=== PATIENT | female | born 1980 | race Caucasian/White ===

== ENCOUNTER 2024-02-10 16:09 | Emergency (ER) | payer BC, SELFPAY ==
--- NOTE | ~2024-02-10 | CT_ITS ---
EXAMINATION: CT HEAD WITHOUT CONTRAST CLINICAL INFORMATION: Unsteady. COMPARISON: None available. TECHNIQUE: Contiguous axial imaging was performed from the skull base to vertex without intravenous administration of contrast. This CT examination was performed using dose optimization techniques as appropriate, variously including the following: *Automated exposure control *Adjustment of mA and/or kV according to patient size (this includes techniques or standardized protocols for targeted exams where dose is matched to indication/reason for exam; i.e. extremities or head) *Use of iterative reconstruction technique DLP: 613 mGy-cm FINDINGS: No acute intracranial hemorrhage. No mass effect or midline shift. No parenchymal lesion. The montanez-white differentiation is maintained. No extra-axial fluid collection. The ventricles and sulci are unremarkable. The basal cisterns are patent. The calvarium is intact. The visualized paranasal sinuses and mastoid air cells are clear. CT/CT head/brain wo IV con IMPRESSION: No acute intracranial hemorrhage or mass effect.
[2024-02-10 16:15] VITALS: BP 140/84; PULSE 94; RESP 16; TEMP 36.5; O2SAT 98; BMI 20.7
--- NOTE | 2024-02-10 16:15 | ED_ITS ---
HPI - General Adult General Chief complaint: Dizziness Stated complaint: dizzy,shaky,fatigue,nausea Time Seen by Provider: 02/10/24 20:31 Source: patient Mode of arrival: ambulatory Limitations: no limitations History of Present Illness ED Provider: EDMUNDO VILLA PA-C HPI narrative: 43-year-old female with pmhx significant for migraines (takes topamax) presents to the ED today for evaluation of dizziness, ear fullness and congestion since this morning. Dizziness is worse with head movements. Denies syncope. Denies known sick contacts however admits to returning from [place] a few days ago via airplane. Denies drainage from the ear, hearing changes, headache, vision changes. Denies recent swimming. Related Data Previous Rx's ?Medication ?Instructions ?Recorded amoxicillin 875 mg-potassium 1 tab PO BID 5 days #10 tabs 02/11/24 clavulanate 125 mg tablet meclizine 25 mg tablet 25 mg PO BID PRN dizziness #14 tabs 02/11/24 Allergies Allergy/AdvReac Type Severity Reaction Status Date / Time No Known Allergies Allergy Verified 02/10/24 16:16 Review of Systems 2 Review of Systems: Constitutional: No fever, chills, fatigue, night sweats, weight changes ENT/Mouth: No ear pain, hearing loss, nasal congestion, sinus pain, rhinorrhea, sore throat, + no congestion Eyes: No eye pain, swelling, redness, vision changes, discharge, + ear fullness Cardio: No chest pain, palpitations, BOLIVAR, orthopnea, peripheral edema Pulm: No SOB, cough, sputum, wheezing, dyspnea, hemoptysis GI: No nausea, vomiting, hematemesis, abdominal pain, diarrhea, constipation, hematochezia, melena : No irregular bleeding, dysuria, frequency, urgency, hesitancy, hematuria, flank pain, urinary flow changes, urinary incontinence or retention MSK: No back pain, neck pain, joint pain, myalgias Skin: No lesions, rashes Neuro: No weakness, numbness, paresthesias, LOC, dizziness, headache Psych: No anxiety/panic, depression, SI/HI, AH/VH All other systems reviewed and are negative PMFSH Past Medical History Attestation statement: The following information was validated with the patient. Source: old records reviewed and nursing notes reviewed Social History Social History Smoked in Last 30 Days: No Advance Directives: No Advance Directives Information Provided: No Physical Exam ED Vital Signs: Vital Signs - 24 hr 02/10/24 16:15 02/10/24 22:00 02/11/24 00:00 Temperature 97.7 F 98.1 F 97.9 F Pulse Rate 94 88 84 Respiratory Rate 16 16 16 Blood Pressure 140/84 H 127/79 132/81 Pulse Oximetry 98 97 98 Oxygen Delivery Method Room Air Room Air Room Air 02/11/24 00:56 Temperature 97.9 F Pulse Rate 84 Respiratory Rate 16 Blood Pressure 132/81 Pulse Oximetry 98 Oxygen Delivery Method Room Air BMI result Body Mass Index 20.7 Patient is slightly hypertensive, vitals otherwise WNL Const General: cooperative, healthy appearing, comfortable and no acute distress Orientation/consciousness: patient oriented x3 Limitations: no limitations HENMT Other: + No pain on manipulation of left pinna or tragus. No mastoid tenderness or protrusion of the auricle. Left EAC without erythema, edema or discharge. Left TM intact, erythematous and bulging. No effusion. + No pain on manipulation of right pinna or tragus. No mastoid tenderness. Right EAC without erythema, edema or discharge. TM intact without erythema, effusion, or bulging. Head: Yes normal to inspection, Yes No palpable skull fracture present, Yes normocephalic and Yes atraumatic Ears: hearing grossly normal bilaterally Face and sinus: Yes normal facial exam and Yes sinuses nontender Eyes General: appearance normal, both eyes and all related structures Pupils: Equal, round and reactive pupils present Neck Neck: Yes normal visual inspection and Yes no lymphadenopathy Resp Effort & Inspection: normal respiratory effort and able to speak in complete sentences Auscultation: clear to auscultation bilaterally Cardio Rate: regular rate Rhythm: regular rhythm Skin General skin exam: no rashes or lesions noted Neuro General: patient oriented x3, gait normal, tone normal, moves all extremities and no focal motor deficits Cranial nerves: Yes Equal, round and reactive pupils present Gait exam (Neuro): Normal gait present Motor exam (neuro): 5/5 motor strength present throughout and Pronator motor function not present Coordination: [id number] test normal, [id number] test normal and Normal rapid alternating movements of the distal upper extremity present (Neuro) Pupils: Normal pupillary reactivity/response: bilateral Course Course Course Narrative: This is an RME performed by Gabo Dorman CNP: Additional HPI, ROS, PE not included below will be deferred to primary provider. Patient is a 40 male presents to emergency department for evaluation, reports she awoke this morning with dizziness exacerbated with head movement or ambulation, feeling off balanced, feeling shaky, nausea, fatigue. Plan: Labs, EKG, viral panel, urinalysis, hCG Reevaluation(s) Reevaluation #1: 0000-- CBC without leukocytosis or left shift. No anemia. H&H stable. Chemistry showing hyponatremia at 130, other acute electrolyte abnormality requiring intervention. Patient received 2 L of normal saline. Repeat BMP showing sodium normalized to 140. Repeat P MP also showing hypokalemia to 2.8. Given patient's potassium was 3.7 just a few hours prior, I had this repeated and shows potassium normal at 3.5. no concern for acute hyperkalemia. Normal renal function. Normal liver function. Troponin undetectable. EKG showing normal sinus rhythm at a rate of 87 beats per minute, QT 400, QTC 481, no acute ischemic changes or ST elevations. ACS unlikely. She has tested negative for COVID, flu, RSV. Head CT does not reveal intracranial hemorrhage or mass. Urine is negative for infection and . > all workup results discussed with patient. Her physical exam is consistent with otitis media of the left ear. Augmentin sent to pharmacy for treatment. Will also send meclizine for dizziness. Patient is agreeable with this. Patient has remained stable throughout ED visit today. Discussed worrisome signs and symptoms and when to return to the ED. All questions answered at this time. Patient is agreeable with disposition and stable for discharge. Medications Administered Discontinued Medications Generic Name Dose Route Start Last Admin Trade Name Freq PRN Reason Stop Dose Admin Sodium Chloride 1,000 mls @ 999 mls/hr 02/10/24 20:45 02/10/24 21:53 Ns IV 02/10/24 21:45 Infused .Q1H1M JACLYN Infusion Sodium Chloride 1,000 mls @ 999 mls/hr 02/10/24 20:45 02/10/24 22:41 Ns IV 02/10/24 21:45 Infused .Q1H1M JACLYN Infusion Medical Decision Making Medical Decision Making [facility] Narrative: 43-year-old female with pmhx significant for migraines (takes topamax) presents to the ED today for evaluation of dizziness, ear fullness and congestion since this morning. Patient initially hypertensive to 140/84. Not tachycardic. Not hypoxic. She is nontoxic-appearing and in no acute distress. On exam, No pain on manipulation of left pinna or tragus. No mastoid tenderness or protrusion of the auricle. Left EAC without erythema, edema or discharge. Left TM intact, erythematous and bulging. No effusion. No tenderness to percussion vaccine sinuses Cerebellum intact. Exam nonfocal. PERRLA. Ambulating with steady gait. No nystagmus. Differential diagnosis includes otitis media, otitis externa, vertigo, anemia, dehydration, electrolyte derangement, orthostatic hypotension, viral syndrome. Unlikely mastoiditis, malignant otitis externa, ICH, CVA/TIA, cerebellar stroke. Plan for labs, viral serology, EKG, UA, urine , CT head/brain, IVF, re- evaluation. Differential Diagnosis Differential Diagnoses: The differential diagnosis associated with the presentation includes As above Admission/Observation Not indicated Lab Data [facility] Lab Attestation statement: I reviewed the patient's lab results. As above 02/10/24 16:43 02/10/24 23:49 Labs: Lab Results 02/10/24 02/10/24 02/10/24 Range/Units 16:43 17:00 23:03 WBC 6.7 (4.8-10.8) X10*3/uL RBC 4.23 (4.20-5.50) X10*6/uL Hgb 13.2 (12.0-16.0) g/dl Hct 37.4 (37.0-47.0) % MCV 88.4 (80.0-98.0) fL MCH 31.2 (27.0-33.0) pg MCHC 35.3 H (31.0-35.0) g/dl RDW 12.2 (11.0-16.0) % Plt Count 213 (160-400) X10*3/uL MPV 10.3 (9.4-12.3) fL Immature Gran % (Auto) 0.3 (0.0-0.4) % Neut % (Auto) 78.3 H (45-73) % Lymph % (Auto) 10.5 L (20-40) % [place] % (Auto) 10.4 (2-11) % Eos % (Auto) 0.1 (0-4) % Baso % (Auto) 0.4 (0-2) % Lymph # (Auto) 0.7 L (1.2-4.9) X10*3/uL [place] # (Auto) 0.7 (0.1-1.2) X10*3/uL Eos # (Auto) 0.0 (0.0-0.4) X10*3/uL Baso # (Auto) 0.0 (0.0-0.2) X10*3/uL Abs Immat Gran (auto) 0.02 (0.00-0.03) X10*3/uL Absolute Neuts (auto) 5.3 (2.0-8.3) x10*3/uL Absolute Nucleated RBC 0.000 (0.0-0.012) X10*3/uL Nucleated RBC % (auto) 0.0 (0.0-0.2) /100WBC Hold Purple Top PT 12.0 (11.1-13.3) SEC INR 1.0 (0.9-1.1) Sodium 130 L 140 (135-145) mmol/L Potassium 3.7 2.8 L* D (3.3-5.1) mmol/L Chloride 102 117 H (96-108) mmol/L Carbon Dioxide 19 L 17 L (22-29) mmol/L Anion Gap 13 9 L (12-20) BUN 10 6 L (9-16) mg/dL Creatinine 0.84 0.68 (0.5-1.4) mg/dL Estim Creat Clear Calc 79.3 98.0 Estimated GFR > 60 > 60 Random Glucose 113 112 (60-115) mg/dL Calcium 8.7 6.6 L D (8.4-10.2) mg/dL Magnesium 2.0 (1.6-2.6) mg/dL Total Bilirubin 0.5 (0.0-1.0) mg/dL AST 16 (5-31) U/L ALT 13 (0-31) U/L Alkaline Phosphatase 39 (39-117) U/L Troponin I High Sens < 2.7 (<3.5-17.0) ng/L Total Protein 6.6 (6.5-8.0) g/dL Albumin 4.3 (3.5-5.0) g/dL Urine Color Yellow Urine Appearance Clear Urine pH 7.5 (5.0-9.0) Ur Specific [place] 1.010 (1.005-1.025) Urine Protein Negative (Neg-Trace) mg/dL Urine Glucose (UA) Negative (Negative) mg/dL Urine Ketones Negative (Negative) mg/dL Urine Blood Negative (Negative) Urine Nitrite Negative (Negative) Ur Leukocyte Esterase Negative (Negative) Urine Test NEGATIVE (NEGATIVE) Influenza Type A (PCR) NEGATIVE (Negative) Influenza Type B (PCR) NEGATIVE (Negative) RSV RNA Qual (PCR) NEGATIVE (Negative) SARS-CoV-2 RNA (RT-PCR) NEGATIVE (Negative) 02/10/24 Range/Units 23:49 WBC (4.8-10.8) X10*3/uL RBC (4.20-5.50) X10*6/uL Hgb (12.0-16.0) g/dl Hct (37.0-47.0) % MCV (80.0-98.0) fL MCH (27.0-33.0) pg MCHC (31.0-35.0) g/dl RDW (11.0-16.0) % Plt Count (160-400) X10*3/uL MPV (9.4-12.3) fL Immature Gran % (Auto) (0.0-0.4) % Neut % (Auto) (45-73) % Lymph % (Auto) (20-40) % [place] % (Auto) (2-11) % Eos % (Auto) (0-4) % Baso % (Auto) (0-2) % Lymph # (Auto) (1.2-4.9) X10*3/uL [place] # (Auto) (0.1-1.2) X10*3/uL Eos # (Auto) (0.0-0.4) X10*3/uL Baso # (Auto) (0.0-0.2) X10*3/uL Abs Immat Gran (auto) (0.00-0.03) X10*3/uL Absolute Neuts (auto) (2.0-8.3) x10*3/uL Absolute Nucleated RBC (0.0-0.012) X10*3/uL Nucleated RBC % (auto) (0.0-0.2) /100WBC Hold Purple Top SEE NOTE PT (11.1-13.3) SEC INR (0.9-1.1) Sodium 140 (135-145) mmol/L Potassium 3.5 D (3.3-5.1) mmol/L Chloride 114 H (96-108) mmol/L Carbon Dioxide 19 L (22-29) mmol/L Anion Gap 11 L (12-20) BUN 7 L (9-16) mg/dL Creatinine 0.75 (0.5-1.4) mg/dL Estim Creat Clear Calc 88.8 Estimated GFR > 60 Random Glucose 107 (60-115) mg/dL Calcium 7.9 L D (8.4-10.2) mg/dL Magnesium (1.6-2.6) mg/dL Total Bilirubin (0.0-1.0) mg/dL AST (5-31) U/L ALT (0-31) U/L Alkaline Phosphatase (39-117) U/L Troponin I High Sens (<3.5-17.0) ng/L Total Protein (6.5-8.0) g/dL Albumin (3.5-5.0) g/dL Urine Color Urine Appearance Urine pH (5.0-9.0) Ur Specific [place] (1.005-1.025) Urine Protein (Neg-Trace) mg/dL Urine Glucose (UA) (Negative) mg/dL Urine Ketones (Negative) mg/dL Urine Blood (Negative) Urine Nitrite (Negative) Ur Leukocyte Esterase (Negative) Urine Test (NEGATIVE) Influenza Type A (PCR) (Negative) Influenza Type B (PCR) (Negative) RSV RNA Qual (PCR) (Negative) SARS-CoV-2 RNA (RT-PCR) (Negative) Independent Interpretation I performed an independent interpretation of an: EKG and CT Scan Interpretation: EKG showing normal sinus rhythm with a rate of 87 beats per minute, QT 400, QTC 481, no acute ischemic changes or ST elevations. CT head/brain without bleed, agree with radiologist's interpretation. Radiology Impression Discussion of test interpretation with radiology: I have reviewed the radiologist's reading. Radiologist Impression: EXAMINATION: CT HEAD WITHOUT CONTRAST CLINICAL INFORMATION: Unsteady. COMPARISON: None available. TECHNIQUE: Contiguous axial imaging was performed from the skull base to vertex without intravenous administration of contrast. This CT examination was performed using dose optimization techniques as appropriate, variously including the following: *Automated exposure control *Adjustment of mA and/or kV according to patient size (this includes techniques or standardized protocols for targeted exams where dose is matched to indication/reason for exam; i.e. extremities or head) *Use of iterative reconstruction technique DLP: 613 mGy-cm FINDINGS: No acute intracranial hemorrhage. No mass effect or midline shift. No parenchymal lesion. The montanez-white differentiation is maintained. No extra-axial fluid collection. The ventricles and sulci are unremarkable. The basal cisterns are patent. The calvarium is intact. The visualized paranasal sinuses and mastoid air cells are clear. CT/CT head/brain wo IV con IMPRESSION: No acute intracranial hemorrhage or mass effect. External Record Review External record reviewed: Inpatient record Prescription Management I considered prescription management with: Antibiotic (Augmentin) and Other (Meclizine) Social Determinants Patient?s care significantly limited by Social Determinants of Health including: Other Social Determinant of Health Critical Care Time Critical Care Time Critical Care Time: No Discharge Plan Discharge Clinical Impression: Otitis media, Dizziness Patient Disposition: Home, Self-Care Instructions: Vertigo (ED), Ear Infection (ED), Dizziness (ED) Additional Instructions: Your blood work today showed low sodium. This was repleted in the ED. Your blood work was otherwise reassurring. You tested negative for covid, flu, and rsv. Your urine is negative for infection. The CT scan of your head did not reveal bleed or mass. Meclizine is a medication that has been sent to your pharmacy for you to trial for your dizziness. Additionally, you were noted to have an inner ear infection of your left ear. Augmentin is an antibiotic that has been sent to your pharmacy for treatment. On amoxicillin-clavulanate, softer bowel movements are to be expected. Call your provider if you move your bowels more than 4 times a day, your bowel movements are almost all liquid, or you get a rash.? Please follow up with your PCP. Return with new or worsening symptoms. In the case of an emergency call 911. Prescriptions: New meclizine 25 mg tablet 25 mg PO BID PRN (Reason: dizziness) Qty: 14 0RF amoxicillin-pot clavulanate 875-125 mg tablet 1 tab PO BID 5 Days Qty: 10 0RF Interventions: ED Discharge Assessment Last Done: 02/11/24 00:56 Discharge Date/Time: 02/11/24 00:57 Print Language: Guatemalan
--- NOTE | 2024-02-10 16:18 | ECG_ITS ---
Test Reason : DIZZINESS Blood Pressure : / mmHG Vent. Rate : 087 BPM Atrial Rate : 087 BPM P-R Int : 138 ms QRS Dur : 084 ms QT Int : 400 ms P-R-T Axes : 075 084 045 degrees QTc Int : 481 ms Normal sinus rhythm Possible Left atrial enlargement Prolonged QT Abnormal ECG No previous ECGs available Referred By: Miley Dorman Electronically Signed By:DAVY PAYAN MD
[2024-02-10 16:49] LABS: MANUAL DIFF FLAG NO
[2024-02-10 16:51] LABS: Basophils Percent Auto 0.4 % (0-2); Eosinophils Percent Auto 0.1 % (0-4); Hematocrit 37.4 % (37.0-47.0); Hemoglobin 13.2 g/dl (12.0-16.0); Imm Gran Abs Auto 0.02 X10*3/uL (0.00-0.03); Imm Gran Pct Auto 0.3 % (0.0-0.4); Lymphocytes Absolute Auto 0.7 X10*3/uL (1.2-4.9); Lymphocytes Percent Auto 10.5 % (20-40); Mean Corpuscular HGB Conc 35.3 g/dl (31.0-35.0); Mean Corpuscular Hemoglobin 31.2 pg (27.0-33.0); Mean Corpuscular Volume 88.4 fL (80.0-98.0); Mean Platelet Volume 10.3 fL (9.4-12.3); Monocytes Absolute Auto 0.7 X10*3/uL (0.1-1.2); Monocytes Percent Auto 10.4 % (2-11); Neutrophils Absolute Auto 5.3 x10*3/uL (2.0-8.3); Neutrophils Percent Auto 78.3 % (45-73); Platelet Count 213 X10*3/uL (160-400); Red Blood Count 4.23 X10*6/uL (4.20-5.50); Red Cell Distribution Width 12.2 % (11.0-16.0); White Blood Count 6.7 X10*3/uL (4.8-10.8)
[2024-02-10 17:13] LABS: Appearance Urine Clear; Color Urine Yellow; Glucose Urine UA Negative (Negative); Leukocyte Esterase Urine Negative (Negative); Nitrite Urine Negative (Negative); PH 7.5 (5.0-9.0); Urine Blood Negative (Negative); Urine Ketones Negative (Negative); Urine Protein Negative (Neg-Trace)
[2024-02-10 17:14] LABS: UPreg QC Valid YES; Urine Pregnancy NEGATIVE (NEGATIVE)
[2024-02-10 17:15] LABS: Anion Gap 13 (12-20); Blood Urea Nitrogen 10 mg/dL (9-16); Carbon Dioxide 19 mmol/L (22-29); Chloride 102 mmol/L (96-108); Potassium 3.7 mmol/L (3.3-5.1); Sodium 130 mmol/L (135-145)
[2024-02-10 17:16] LABS: Alanine Aminotransferase 13 U/L (0-31); Albumin Level 4.3 g/dL (3.5-5.0); Aspartate Amino Transferase 16 U/L (5-31); Bilirubin Total 0.5 mg/dL (0.0-1.0); Calcium 8.7 mg/dL (8.4-10.2); Creatinine Clr Calc Pharmacy 79.3; Estimated Glomerular Filt Rate > 60; Glucose Random 113 mg/dL (60-115); Total Protein 6.6 g/dL (6.5-8.0)
[2024-02-10 17:17] LABS: Alkaline Phosphatase 39 U/L (39-117)
[2024-02-10 17:21] LABS: Troponin-I High Sensitivity < 2.7 ng/L (<3.5-17.0)
[2024-02-10 17:34] LABS: Influenza A PCR NEGATIVE (Negative); Influenza B PCR NEGATIVE (Negative); Resp Syncy Virus RNA Qual PCR NEGATIVE (Negative); SARS COV2 PCR INHOUSE NEGATIVE (Negative)
[2024-02-10] MEDS: 0.9 % Sodium Chloride 1,000 ML 999 ML IV ×2 (20:54→21:30)
[2024-02-10 22:00] VITALS: BP 127/79; PULSE 88; RESP 16; TEMP 36.7; O2SAT 97
[2024-02-10 23:27] LABS: Anion Gap 9 (12-20); Blood Urea Nitrogen 6 mg/dL (9-16); Calcium 6.6 mg/dL (8.4-10.2); Carbon Dioxide 17 mmol/L (22-29); Chloride 117 mmol/L (96-108); Estimated Glomerular Filt Rate > 60; Glucose Random 112 mg/dL (60-115); Potassium 2.8 mmol/L (3.3-5.1); Sodium 140 mmol/L (135-145)
[2024-02-11] VITALS: BP 132/81; PULSE 84; RESP 16; TEMP 36.6; O2SAT 98
[2024-02-11 00:09] LABS: Anion Gap 11 (12-20); Blood Urea Nitrogen 7 mg/dL (9-16); Calcium 7.9 mg/dL (8.4-10.2); Carbon Dioxide 19 mmol/L (22-29); Chloride 114 mmol/L (96-108); Creatinine Clr Calc Pharmacy 88.8; Estimated Glomerular Filt Rate > 60; Glucose Random 107 mg/dL (60-115); Potassium 3.5 mmol/L (3.3-5.1); Sodium 140 mmol/L (135-145)
[2024-02-11 00:56] VITALS: BP 132/81; PULSE 84; RESP 16; TEMP 36.6; O2SAT 98
== END 2024-02-11 00:57 | disposition home or self-care (01) ==
PROVIDERS: Nurse Practitioner Family; Physician Assistant Medical; Emergency Provider Emergency Medicine
DX: R42 Dizziness and giddiness (principal); H66.92 Otitis media, unspecified, left ear; E87.1 Hypo-osmolality and hyponatremia; E87.6 Hypokalemia; R26.81 Unsteadiness on feet; Z03.818 Encounter for observation for suspected exposure to other biological agents ruled out; I10 Essential (primary) hypertension; Z79.899 Other long term (current) drug therapy
CPT/HCPCS: 0241U; 36415; 70450; 80048; 80053; 81003; 81025; 83735; 84484; 85025; 85610; 93005; 96360; 96361; 99285

== ENCOUNTER → 2024-02-10 16:18 | Outpatient (BNV) | payer BC, SELFPAY | PROVIDERS: Emergency Provider Emergency Medicine; Visit Provider Internal Medicine Cardiovascular Disease | DX: R94.31 Abnormal electrocardiogram [ECG] [EKG] (principal) | CPT/HCPCS: 93010 ==